=== PATIENT | male | born 1955 | race Hispanic/Latino ===

== ENCOUNTER → 2024-04-03 | Day surgery (SDC) | payer OTHER ==
[2024-03-29 13:58] LABS: BASOPHILS # (AUTO) 0.1 (0.0-0.1); BASOPHILS % 0.7 % (0.0-1.0); EOSINOPHILS # (AUTO) 0.2 (0.0-0.4); EOSINOPHILS % 2.4 % (0.0-6.0); HEMOGLOBIN 14.9 g/dL (14.0-18.0); LYMPHOCYTES # (AUTO) 3.2 (1.0-3.2); LYMPHOCYTES % 32.7 % (18.0-39.1); MEAN CORPUSCULAR HGB CONC 32.4 g/dL (31-35); MEAN CORPUSCULAR VOLUME 98.7 fL (81-99); MONOCYTES # (AUTO) 1.1 (0.2-0.8); MONOCYTES % 11.5 % (4.4-11.3); NEUTROPHILS # (AUTO) 5.1 (2.1-6.9); NEUTROPHILS % 52.3 % (38.7-80.0); PLATELET COUNT 240 x10e3/uL (140-360); RED BLOOD COUNT 4.66 x10e6/uL (4.3-5.7); RED CELL DISTRIBUTION WIDTH 14.1 % (11.7-14.4)
[~2024-04-03] MED LIST: ACETAMINOPHEN 1000 MG/100 ML IV ONE; DEXAMETHASONE SOD PHOS 10 MG/1 ML VIAL ONE; DEXAMETHASONE SOD PHOS INJ 4 MG/ML SDV ONE; DEXMEDETOMIDINE HCL 200 MCG/2 ML VIAL ONE; FENTANYL CITRATE/PF 100MCG/2 ML INJ ONE; LACTATED RINGER'S 1,000 ML ONE; LIDOCAINE HCL 2% LOCAL INJ 5 ML SDV VIAL INJ ONE; LOSARTAN POTAS100 MG PO; MAGNESIUM PO; MIDAZOLAM HCL 2 MG/2 ML VIAL ONE; MUPIROCIN 2% OINT 22 GM TUBE ONE; ONDANSETRON HCL INJ 2MG/ML 2ML 2 MG/ML VIAL ONE; PROPOFOL IV EMULSION 10 MG/ML 20 ML VIAL ONE; ROPIVACAINE 0.5% 5 MG/ML 30 ML SDV ONE; VENTOLIN HFA18 GM INH; VITAMIN B-121000 MCG PO
[2024-04-03 14:50] VITALS: BP 136/81; PULSE 61; RESP 16; O2SAT 96
== END | disposition home or self-care (01) ==
LOC: OR 10:26
PROVIDERS: ATTEND Podiatrist Foot & Ankle Surgery
DX: M72.2 Plantar fascial fibromatosis (principal); M77.31 Calcaneal spur, right foot; M77.51 Other enthesopathy of right foot and ankle; M76.821 Posterior tibial tendinitis, right leg; G47.33 Obstructive sleep apnea (adult) (pediatric); I10 Essential (primary) hypertension; J45.909 Unspecified asthma, uncomplicated; Z01.810 Encounter for preprocedural cardiovascular examination; Z01.812 Encounter for preprocedural laboratory examination; Z01.818 Encounter for other preprocedural examination; Z79.899 Other long term (current) drug therapy; Z96.651 Presence of right artificial knee joint
CPT/HCPCS: 28086; 28899; 29893; 36415; 71046; 85025; 93005; C1762; J0131; J1100 ×2; J2001; J2250; J2405; J2704; J2795; J3010; J7121; 76000

== ENCOUNTER 2024-06-26 09:00 | Outpatient (RCR) | payer OTHER ==
[~2024-06-26 09:00] MED LIST changes: -ACETAMINOPHEN 1000 MG/100 ML IV ONE; -DEXAMETHASONE SOD PHOS 10 MG/1 ML VIAL ONE; -DEXAMETHASONE SOD PHOS INJ 4 MG/ML SDV ONE; -DEXMEDETOMIDINE HCL 200 MCG/2 ML VIAL ONE; -FENTANYL CITRATE/PF 100MCG/2 ML INJ ONE; -LACTATED RINGER'S 1,000 ML ONE; -LIDOCAINE HCL 2% LOCAL INJ 5 ML SDV VIAL INJ ONE; -MIDAZOLAM HCL 2 MG/2 ML VIAL ONE; -MUPIROCIN 2% OINT 22 GM TUBE ONE; -ONDANSETRON HCL INJ 2MG/ML 2ML 2 MG/ML VIAL ONE; -PROPOFOL IV EMULSION 10 MG/ML 20 ML VIAL ONE; -ROPIVACAINE 0.5% 5 MG/ML 30 ML SDV ONE
== END 2024-06-29 ==
LOC: PT 09:00
PROVIDERS: ATTEND Podiatrist Foot & Ankle Surgery
DX: Z47.89 Encounter for other orthopedic aftercare (principal); M62.81 Muscle weakness (generalized); R26.2 Difficulty in walking, not elsewhere classified; M25.571 Pain in right ankle and joints of right foot; M25.671 Stiffness of right ankle, not elsewhere classified

== ENCOUNTER 2024-07-19 08:00 | Outpatient (RCR) | payer OTHER | END 2024-07-30 | LOC: PT 08:00 | PROVIDERS: ATTEND Podiatrist Foot & Ankle Surgery | DX: Z47.89 Encounter for other orthopedic aftercare (principal); M25.571 Pain in right ankle and joints of right foot; M25.671 Stiffness of right ankle, not elsewhere classified; M62.81 Muscle weakness (generalized); R26.2 Difficulty in walking, not elsewhere classified ==

== ENCOUNTER 2024-08-16 09:00 | Outpatient (RCR) | payer OTHER | END 2024-08-30 | LOC: PT 09:00 | PROVIDERS: ATTEND Podiatrist Foot & Ankle Surgery | DX: Z47.89 Encounter for other orthopedic aftercare (principal); M62.81 Muscle weakness (generalized); R26.2 Difficulty in walking, not elsewhere classified; M25.571 Pain in right ankle and joints of right foot; M25.671 Stiffness of right ankle, not elsewhere classified ==

== ENCOUNTER 2024-11-25 11:28 | Emergency (ER) | payer OTHER ==
[~2024-11-25] VITALS: Ht 182.9 cm; Wt 131.8 kg
[2024-11-25] MEDS ORDERED: CYCLOBENZAPRINE10 MG PO (12:02)
[2024-11-25 12:18] VITALS: PULSE 52; RESP 16; TEMP 97.4; O2SAT 96
== END 2024-11-25 12:18 | disposition home or self-care (01) ==
LOC: FSED 11:36
DX: S39.012A Strain of muscle, fascia and tendon of lower back, initial encounter (principal); X50.1XXA Overexertion from prolonged static or awkward postures, initial encounter; Y92.89 Other specified places as the place of occurrence of the external cause
CPT/HCPCS: 99283

== ENCOUNTER 2025-03-03 05:46 | Day surgery (SDC) | payer OTHER ==
[2025-02-27 10:52] LABS: BASOPHILS % 0.5 % (0.0-1.0); EOSINOPHILS % 2.4 % (0.0-6.0); LYMPHOCYTES % 33.3 % (18.0-39.1); MONOCYTES % 10.2 % (4.4-11.3); NEUTROPHILS % 53.3 % (38.7-80.0); RED CELL DISTRIBUTION WIDTH 13.8 % (11.7-14.4)
[2025-02-27 11:18] LABS: CHOL/HDL RATIO 5.0 (3.9-4.7); EST GLOMERULAR FILTRATION RATE 74.0 ML/MIN (>=60); LDL CHOLESTEROL 128.0 MG/DL (60-130)
[2025-02-27 11:24] LABS: INR 0.86
[~2025-03-03] VITALS: Ht 182.9 cm; Wt 78.5 kg
[2025-03-03] VITALS (12 sets, daily range): BP systolic 129–155; BP diastolic 68–86; PULSE 46–54; RESP 15–19; TEMP 97.5–97.9; O2SAT 94–99
[~2025-03-03 05:46] MED LIST changes: +CYCLOBENZAPRINE10 MG PO
[2025-03-03] MEDS ORDERED: LIDOCAINE HCL 1% 30ML-PF VIAL ONE (06:28)
[2025-03-03] MEDS ORDERED: IOPAMIDOL 370 MG/ML 100 ML INFUS..BTL INJ ONE (06:29)
[2025-03-03] MEDS ORDERED: HEPARIN SOD/SOD CHLORIDE 2,000 ML ONE (06:29)
[2025-03-03] MEDS ORDERED: FENTANYL CITRATE/PF 100MCG/2 ML INJ ONE (06:48)
[2025-03-03] MEDS ORDERED: VERAPAMIL HCL 2.5 MG/ML 2 ML VIAL ONE (06:48)
[2025-03-03] MEDS ORDERED: MIDAZOLAM HCL 2 MG/2 ML VIAL ONE (06:48)
[2025-03-03] MEDS ORDERED: HEPARIN SOD (PORCINE) 1000 UNIT/ML 30ML ONE (06:48)
[2025-03-03] MEDS ORDERED: SODIUM CHLORIDE 0.9% 1000ML 1,000 ML ONE (06:49)
[2025-03-03] MEDS ORDERED: NITROGLYCERIN/D5W 200 MCG/ML 250 ML ONE (06:49)
== END 2025-03-03 10:22 | disposition home or self-care (01) ==
LOC: CATH LAB 05:46
PROVIDERS: ATTEND Internal Medicine Cardiovascular Disease
DX: I25.110 Atherosclerotic heart disease of native coronary artery with unstable angina pectoris (principal); I10 Essential (primary) hypertension; E11.9 Type 2 diabetes mellitus without complications; Z01.810 Encounter for preprocedural cardiovascular examination; Z01.812 Encounter for preprocedural laboratory examination; Z01.818 Encounter for other preprocedural examination; Z79.899 Other long term (current) drug therapy
CPT/HCPCS: 36415; 71046; 76937; 80048; 80061; 85025; 85610; 85730; 93005; 93458; C1769; C1887; J1644; J2003; J2250; J3010; J7030; Q9967; 99152; 99153